=== PATIENT | male | born 1960 | race Hispanic/Latino ===

== ENCOUNTER 2020-10-07 06:54 | Day surgery (SDC) | payer OTHER ==
[2020-10-01 12:30] LABS: BASOPHILS % (AUTO) 0.5 % (0.0-5.0); EOSINOPHILS % (AUTO) 1.2 % (0.0-8.0); HEMATOCRIT 46.5 % (42-54); LYMPHOCYTES % (AUTO) 25.7 % (21.0-51.0); MEAN CORPUSCULAR HEMOGLOBIN 31.7 pg (27.0-33.0); MEAN CORPUSCULAR HGB CONC 34.6 g/dL (32.0-36.0); MEAN CORPUSCULAR VOLUME 91.5 fL (79-99); NEUTROPHILS % (AUTO) 62.1 % (40.0-77.0); PLATELET COUNT (AUTO) 266 K/uL (130-400); RED BLOOD CELL COUNT(AUTO) 5.08 MIL/uL (4.50-6.20); RED CELL DISTRIBUTION WIDTH 12.2 % (11.0-15.5); WHITE BLOOD COUNT (AUTO) 8.2 K/uL (4.8-10.8)
[2020-10-01 12:52] LABS: APPEARANCE,URINE Clear (CLEAR); BILIRUBIN,URINE Negative (NEGATIVE); COLOR,URINE Yellow (YELLOW); GLUCOSE, URINE (UA) Negative (NEGATIVE); KETONES,URINE Negative (NEGATIVE); LEUKOCYTE ESTERASE ,URINE Negative (NEGATIVE); NITRATE,URINE Negative (NEGATIVE); OCCULT BLOOD,URINE Negative (NEGATIVE); PROTEIN,URINE Negative (NEGATIVE)
[2020-10-06 09:08] VITALS: BP 131/74
[2020-10-07] VITALS (16 sets, daily range): BP systolic 115–141; BP diastolic 70–90
[~2020-10-07] VITALS: Ht 167.6 cm; Wt 86.9 kg
[2020-10-07] MEDS: CEFTRIAXONE SODIUM 1 GM IVP SCH ×2 (06:00→09:00)
[~2020-10-07 06:54] MED LIST: BUSP15TA3 PO; LEVO500T89 PO; LOSA50TA64 PO; PANT40TA54 PO; SILD50TA PO; SIMV10TA97 PO; VITAMIN B12 IM; VITAMIN D3 PO; ZOLP10TA2 PO
[2020-10-07] MEDS: GENTAMICIN 80 MG/NS 100 ML PB 100 ML IV SCH ×2 (08:00→08:22)
[2020-10-07] MEDS ORDERED: LACTATED RINGERS 1000ML 1,000 ML IV ONE (08:09)
== END 2020-10-07 10:57 | disposition home or self-care (01) ==
LOC: DAH 06:54
PROVIDERS: ATTEND Urology
DX: C61 Malignant neoplasm of prostate (principal); Z20.822 Contact with and (suspected) exposure to COVID-19; I10 Essential (primary) hypertension; G47.33 Obstructive sleep apnea (adult) (pediatric); E78.5 Hyperlipidemia, unspecified; Z79.899 Other long term (current) drug therapy; Z98.890 Other specified postprocedural states; Z88.3 Allergy status to other anti-infective agents
CPT/HCPCS: 36415 ×2; 55700; 76872; 81003; 84153; 84154; 85025; 87088; 87635; 93005; A4215 ×2; A4216; A4221; A4222; A4223; A4600; A4657; A4663; A4930; C9803; J0696; J1580; J7120 ×2; 76942

== ENCOUNTER 2021-04-03 11:36 | Emergency (ER) | payer OTHER ==
[~2021-04-03] VITALS: Ht 162.6 cm; Wt 79.4 kg
[~2021-04-03 11:36] MED LIST changes: -LEVO500T89 PO; +LEVO500T90 PO
[2021-04-03 11:37] VITALS: BP 128/78
[2021-04-03 13:23] LABS: BILIRUBIN,URINE MODERATE (NEGATIVE); GLUCOSE, URINE (UA) 250 mg/dL (NEGATIVE); KETONES,URINE 15 mg/dL (NEGATIVE); LEUKOCYTE ESTERASE ,URINE SMALL (NEGATIVE); NITRATE,URINE POSITIVE (NEGATIVE); OCCULT BLOOD,URINE LARGE (NEGATIVE); PROTEIN,URINE >=300 mg/dL (NEGATIVE)
[2021-04-03 13:25] LABS: APPEARANCE,URINE SLIGHTLY CLOUDY (CLEAR); COLOR,URINE RED (YELLOW); PH,URINE 1.015 (5.0-8.0)
[2021-04-03 13:26] LABS: RBC,URINE >100 /HPF (0-1); WBC,URINE 0-1 /HPF (0-1)
[2021-04-03 13:27] LABS: BACTERIA,URINE Moderate /HPF (None Seen); SQUAMOUS EPITHELIAL CELL,UR Rare /HPF (0-2)
[2021-04-03] MEDS ORDERED: CEFTRIAXONE 1G VIAL IM ONE (13:30)
[2021-04-03] MEDS ORDERED: CEPH500B PO (13:31)
[2021-04-03] MEDS ORDERED: LIDOCAINE HCL-MPF 1% 2ML VIAL ONE (14:05)
== END 2021-04-03 14:50 | disposition home or self-care (01) ==
LOC: EDH 11:36
DX: T83.511A Infection and inflammatory reaction due to indwelling urethral catheter, initial encounter (principal); N39.0 Urinary tract infection, site not specified; E78.00 Pure hypercholesterolemia, unspecified; I10 Essential (primary) hypertension; Z88.8 Allergy status to other drugs, medicaments and biological substances; Z79.899 Other long term (current) drug therapy; Z85.46 Personal history of malignant neoplasm of prostate; Z90.79 Acquired absence of other genital organ(s); Y83.8 Other surgical procedures as the cause of abnormal reaction of the patient, or of later complication, without mention of misadventure at the time of the procedure; Y92.89 Other specified places as the place of occurrence of the external cause
CPT/HCPCS: 76857; 81001; 87077; 87088; 87186; 96372; 99284; J0696; J3490

== ENCOUNTER → 2024-07-17 | Outpatient (CLI) | payer OTHER ==
[~2024-07-17] MED LIST changes: +CHOL500045 PO; -LEVO500T90 PO; +SENN-107 PO; -SILD50TA PO; -VITAMIN B12 IM; -VITAMIN D3 PO
--- NOTE | 2024-07-17 14:24 | HMCIMG ---
CT MAXILLOFACIAL W/O CONTRAST Indication: OTHER CHRONIC SINUSITIS Technique: Multiple thin section axial images were performed through the face and paranasal sinuses. Coronal reconstructions were performed in soft tissue and bone windows, as well as sagittal reconstructions. CT Dose Index (CTDI): 22.11 mGy Dose Length Product (DLP): 450.8 total mGy Findings: Paranasal sinuses are unremarkable. There is no evidence of facial fracture. Visualized soft tissues are unremarkable. Visualized intracranial contents are unremarkable. Impression: No acute abnormality of the face. This study was performed using dose reduction techniques to include automated exposure control and/or adjustment of the mA and/or kV according to patient size.
== END | disposition home or self-care (01) ==
LOC: RAH 13:16
PROVIDERS: ATTEND Otolaryngology Plastic Surgery within the Head & Neck
DX: J32.8 Other chronic sinusitis (principal)
CPT/HCPCS: 70486